=== PATIENT | male | born 1975 | race Two or more races ===

== ENCOUNTER 2022-02-26 07:30 | Outpatient (CLI) | payer OTHER | END 2022-02-26 07:31 | disposition home or self-care (01) | LOC: LAB 07:30 | DX: D64.9 Anemia, unspecified (principal); I10 Essential (primary) hypertension; E11.9 Type 2 diabetes mellitus without complications; E78.5 Hyperlipidemia, unspecified; E55.9 Vitamin D deficiency, unspecified; E53.8 Deficiency of other specified B group vitamins; E03.9 Hypothyroidism, unspecified; R80.9 Proteinuria, unspecified; R79.89 Other specified abnormal findings of blood chemistry; D51.9 Vitamin B12 deficiency anemia, unspecified; E72.11 Homocystinuria ==

== ENCOUNTER → 2022-03-11 11:07 | Outpatient (CLI) | payer OTHER | END | disposition home or self-care (01) | LOC: LAB 11:07 | PROVIDERS: ATTEND Pediatrics | DX: J11.1 Influenza due to unidentified influenza virus with other respiratory manifestations (principal) ==

== ENCOUNTER 2022-12-12 07:45 | Outpatient (CLI) | payer OTHER | END 2022-12-12 07:46 | disposition home or self-care (01) | LOC: LAB 07:45 | DX: D64.9 Anemia, unspecified (principal); I10 Essential (primary) hypertension; E11.9 Type 2 diabetes mellitus without complications; E53.8 Deficiency of other specified B group vitamins; E55.9 Vitamin D deficiency, unspecified; E78.5 Hyperlipidemia, unspecified; R80.9 Proteinuria, unspecified; E03.9 Hypothyroidism, unspecified; D51.9 Vitamin B12 deficiency anemia, unspecified; E72.11 Homocystinuria ==

== ENCOUNTER 2023-05-29 07:23 | Outpatient (CLI) | payer OTHER ==
[2023-05-29 09:06] LABS: HEMATOCRIT 44.1 % (39.0-48.0); HEMOGLOBIN 15.5 g/dL (13-16.00); MEAN CELL VOLUME 92.2 fL (80.0-100.00); MEAN CORPUSCULAR HEMOGLOBIN 32.5 pg (27.00-32.0); MEAN CORPUSCULAR HGB CONC 35.3 g/dl (32.0-36.0); PLATELET COUNT 237 K/uL (150-450); RED BLOOD COUNT 4.78 M/uL (4.00-6.00); RED CELL DISTRIBUTION WIDTH 12.6 % (11.5-14.5)
[2023-05-29 09:22] LABS: URINE APPEARANCE Clear; URINE BILIRRUBIN Negative (NEGATIVE); URINE BLOOD Negative; URINE COLOR Yellow; URINE GLUCOSE Negative (NEGATIVE); URINE LEUKOCYTE Trace; URINE NITRATE Negative; URINE PROTEIN Negative (NEGATIVE); URINE UROBILINOGEN 0.2 E.U./dl
[2023-05-29 09:26] LABS: URINE BACTERIA 8.8 uL (0.0-1933); URINE RBC 2.4 uL (0.0-20.8); URINE WBC 28.8 uL (0.0-23.2)
[2023-05-29 10:16] LABS: ALBUMIN 4.3 gm/dL (3.4-5.0); BILIRUBIN TOTAL 1.23 mg/dL (0.3-1.2); CALCIUM 9.2 mg/dL (8.5-10.1); CHOL HDL RATIO 4.1 (0-5.0); CREATININE SERUM 0.92 mg/dL (0.70-1.30); GFR 87.08; POTASSIUM 3.65 mEq/L (3.5-5.1); T4 FREE 1.29 NG/ML (0.76-1.46); TOTAL PROTEIN 7.3 gm/dL (6.4-8.2); TSH 4.62 uIU/mL (0.358-3.74)
== END 2023-05-29 07:24 | disposition home or self-care (01) ==
LOC: LAB 07:23
DX: D64.9 Anemia, unspecified (principal); R74.01 Elevation of levels of liver transaminase levels; R94.5 Abnormal results of liver function studies; E78.2 Mixed hyperlipidemia; R73.01 Impaired fasting glucose; R80.9 Proteinuria, unspecified; N18.6 End stage renal disease

== ENCOUNTER 2023-05-29 08:20 | Outpatient (CLI) | payer OTHER | END 2023-05-29 08:25 | disposition home or self-care (01) | LOC: SONOGRAMA 08:20 | DX: R94.5 Abnormal results of liver function studies (principal); R74.01 Elevation of levels of liver transaminase levels ==

== ENCOUNTER 2024-08-12 07:00 | Outpatient (CLI) | payer OTHER ==
[2024-08-12 07:50] LABS: HEMATOCRIT 45.3 % (39.0-48.0); HEMOGLOBIN 15.4 g/dL (13-16.00); MEAN CORPUSCULAR HGB CONC 34.1 g/dl (32.0-36.0); PLATELET COUNT 245 K/uL (150-450); RED BLOOD COUNT 4.82 M/uL (4.00-6.00); RED CELL DISTRIBUTION WIDTH 12.5 % (11.5-14.5)
[2024-08-12 07:51] LABS: URINE BACTERIA 7.3 uL (0.0-1933); URINE EPITHELIAL CELLS 1.4 uL (0.0-38.8); URINE RBC 13.1 uL (0.0-20.8); URINE WBC 1.8 uL (0.0-23.2)
[2024-08-12 08:01] LABS: URINE BILIRRUBIN NEGATIVE (NEGATIVE); URINE BLOOD SMALL; URINE CAST 0.29 uL (0.0-1.40); URINE GLUCOSE NEGATIVE (NEGATIVE); URINE KETONE NEGATIVE (NEGATIVE); URINE LEUKOCYTE NEGATIVE; URINE NITRATE NEGATIVE; URINE PROTEIN NEGATIVE (NEGATIVE); URINE UROBILINOGEN 0.2 E.U./dl
[2024-08-12 08:02] LABS: URINE APPEARANCE CLEAR; URINE COLOR YELLOW
[2024-08-12 08:53] LABS: ALBUMIN 4.2 gm/dL (3.4-5.0); BILIRUBIN TOTAL 0.89 mg/dL (0.3-1.2); CALCIUM 9.4 mg/dL (8.5-10.1); CHOL HDL RATIO 3.7 (0-5.0); CREATININE SERUM 0.94 mg/dL (0.70-1.30); GFR 84.61; GLOBULINA 3.5 G/DL (2.4-3.5); POTASSIUM 3.75 mEq/L (3.5-5.1); TOTAL PROTEIN 7.7 gm/dL (6.4-8.2)
[2024-08-12 10:11] LABS: VITAMIN D3 25 HYDROXY 33.14 ng/ml (30-120)
[2024-08-12 12:39] LABS: PROSTATIC SPECIFIC ANTIGEN 0.703 NG/ML (0.010-4.00); T4 FREE 1.2 NG/ML (0.76-1.46); TSH 3.6 uIU/mL (0.358-3.74)
== END 2024-08-12 07:05 | disposition home or self-care (01) ==
LOC: LAB 07:00
DX: D64.9 Anemia, unspecified (principal); E03.9 Hypothyroidism, unspecified; E11.9 Type 2 diabetes mellitus without complications; E53.8 Deficiency of other specified B group vitamins; E55.9 Vitamin D deficiency, unspecified; E78.5 Hyperlipidemia, unspecified; I10 Essential (primary) hypertension; R80.9 Proteinuria, unspecified; R79.89 Other specified abnormal findings of blood chemistry; N40.1 Benign prostatic hyperplasia with lower urinary tract symptoms; R97.20 Elevated prostate specific antigen [PSA]; M10.9 Gout, unspecified; D51.9 Vitamin B12 deficiency anemia, unspecified